=== PATIENT | female | born 1955 | race Caucasian/White ===

== ENCOUNTER → 2017-01-06 | Outpatient (CLI) | payer BC | LOC: FIMAGING 12:55 | PROVIDERS: ATTEND Obstetrics & Gynecology | DX: Z12.31 Encounter for screening mammogram for malignant neoplasm of breast (principal) | CPT/HCPCS: G0202 ==

== ENCOUNTER 2017-09-03 08:05 | Emergency (ER) | payer BC ==
--- NOTE | 2017-09-03 08:28 | EDPHY ---
H & P Time Seen by Provider: 09/03/17 08:15 HPI/ROS: CHIEF COMPLAINT: Constipation, liquid stool HISTORY OF PRESENT ILLNESS: Patient presents with 10 days of constipation and no normal bowel movement. She says she has only had some liquid stool for the last 10 days. But decreased bowel output. No vomiting or melena or abdominal pain but a little bit of nausea yesterday. Symptoms mild to moderate. Not better or worse with anything. Tried Dulcolax and increased fiber without relief. No recent travel. REVIEW OF SYSTEMS: Eye: no change in vision ENT: no sore throat Cardiac: no chest pain or syncope Pulmonary: no cough or SOB Abdomen: HPI Musculoskeletal: Chronic back pain on tramadol no change Skin: no rash Neuro: no headache Constitutional: no fever : no urinary symptoms A comprehensive 10 point review of systems is otherwise negative aside from elements mentioned in the history of present illness. PAST MEDICAL HISTORY: Includes hypertension, cystocele, laparoscopic surgery for IUD problem when she was 24 years old Social history: Recently was helping her daughter with a , states that she did not"focus on herself"for a week and a half until this past weekend. General Appearance: Alert and conversant, cooperative. Eyes: No scleral icterus. ENT, Mouth: Normal mucous membranes. Respiratory: Normal respiratory effort, breath sounds equal, lungs are clear to auscultation. Cardiovascular: Regular rate and rhythm. Gastrointestinal: Abdomen is soft and non tender. Rectal exam shows no stool in the vault. Bowel sounds present. No rebound or guarding. Neurological: Alert, face symmetric, normal motor and sensory in extremities. Skin: Warm and dry, no rashes. Musculoskeletal: No peripheral edema. Psychiatric: Not agitated. Emergency Department course/MDM: Clinically does not have constipation with no stool in the rectal vault. CT scan discussed and consented with the patient. 940: Results discussed with the patient, symptomatic care, reassured, stable for discharge. Smoking Status: Never smoked Constitutional: Initial Vital Signs Temperature (C) 37 C 09/03/17 08:07 Heart Rate 76 09/03/17 08:07 Respiratory Rate 18 09/03/17 08:07 Blood Pressure 163/98 H 09/03/17 08:07 O2 Sat (%) 97 09/03/17 08:07 O2 Delivery Mode Room Air Allergies/Adverse Reactions: Sulfa (Sulfonamide Antibiotics) Allergy (Severe, Verified 09/03/17 08:13) Red Man Syndrome Home Medications: Medication Instructions Recorded Acyclovir [Zovirax 200 mg (*)] 200 mg PO 09/03/17 Estradiol [Estrace Vaginal (*)] 42.5 gm VG 09/03/17 Lisinopril [Zestril 20 mg (*)] 20 mg PO 09/03/17 Metoprolol Tartrate [Lopressor 50 50 mg PO 09/03/17 mg (*)] traMADol [Ultram 50 mg (*)] 50 mg PO 09/03/17 Medical Decision Making - Diagnostics Imaging Results: Imaging Impressions Abdomen CT 09/03/17 08:54 Impression: 1. No source for abdominal pain identified. 2. Diverticulosis without evidence of bowel obstruction, acute inflammation or abscess. 3. Degenerative spinal stenosis L4-L5. Results called and discussed with KORI ALEXANDER, at 09/03/2017 9:35 General information for patients regarding this examination can be found at [email or web address]. If you have questions or comments about this report, please contact me at [phone] (hospital) or [phone] (cell). Imaging: Discussed imaging studies w/ call center director Radiologist Differential Diagnosis: Differential considered including but not limited to constipation, partial bowel obstruction, infectious diarrhea, colitis. - Data Points Laboratory Results: Laboratory Results 09/03/17 08:30 09/03/17 08:30 09/03/17 09/03/17 09/03/17 08:37 08:30 08:30 WBC 7.60 10^3/uL 10^3/uL (3.80-9.50) RBC 4.86 10^6/uL 10^6/uL (4.18-5.33) Hgb 16.6 g/dL H g/dL (12.6-16.3) POC Hgb 18.0 gm/dL H gm/dL (12.6-16.3) Hct 48.5 % H % (38.0-47.0) POC Hct 53 % H % (38-47) MCV 99.8 fL fL (81.5-99.8) MCH 34.2 pg H pg (27.9-34.1) MCHC 34.2 g/dL g/dL (32.4-36.7) RDW 12.7 % % (11.5-15.2) Plt Count 210 10^3/uL 10^3/uL (150-400) MPV 12.1 fL H fL (8.7-11.7) Neut % (Auto) 59.7 % % (39.3-74.2) Lymph % (Auto) 27.8 % % (15.0-45.0) [place] % (Auto) 10.3 % % (4.5-13.0) Eos % (Auto) 1.4 % % (0.6-7.6) Baso % (Auto) 0.5 % % (0.3-1.7) Nucleat RBC Rel Count 0.0 % % (0.0-0.2) Absolute Neuts (auto) 4.54 10^3/uL 10^3/uL (1.70-6.50) Absolute Lymphs (auto) 2.11 10^3/uL 10^3/uL (1.00-3.00) Absolute Monos (auto) 0.78 10^3/uL 10^3/uL (0.30-0.80) Absolute Eos (auto) 0.11 10^3/uL 10^3/uL (0.03-0.40) Absolute Basos (auto) 0.04 10^3/uL 10^3/uL (0.02-0.10) Absolute Nucleated RBC 0.00 10^3/uL 10^3/uL (0-0.01) Immature Gran % 0.3 % % (0.0-1.1) Immature Gran # 0.02 10^3/uL 10^3/uL (0.00-0.10) POC Sodium 139 mEq/L mEq/L (135-145) Sodium 137 mEq/L mEq/L (135-145) POC Potassium 4.4 mEq/L mEq/L (3.3-5.0) Potassium 4.7 mEq/L mEq/L (3.3-5.0) POC Chloride 100 mEq/L mEq/L (97-110) Chloride 103 mEq/L mEq/L (97-110) Carbon Dioxide 21 mEq/l L mEq/l (22-31) Anion Gap 13 mEq/L mEq/L (8-16) POC BUN 8 mg/dL mg/dL (7-23) BUN 8 mg/dL mg/dL (7-23) Creatinine 0.7 mg/dL mg/dL (0.6-1.0) POC Creatinine 0.9 mg/dL mg/dL (0.6-1.0) Estimated GFR > 60 Glucose 111 mg/dL H mg/dL (70-100) POC Glucose 121 mg/dL H mg/dL (70-100) Calcium 9.4 mg/dL mg/dL (8.5-10.4) Point of Care Test Results: Chemistry 09/03/17 08:37 POC Sodium 139 mEq/L mEq/L (135-145) POC Potassium 4.4 mEq/L mEq/L (3.3-5.0) POC Chloride 100 mEq/L mEq/L (97-110) POC BUN 8 mg/dL mg/dL (7-23) POC Creatinine 0.9 mg/dL mg/dL (0.6-1.0) POC Glucose 121 mg/dL H mg/dL (70-100) ISTAT H&H 09/03/17 08:37 POC Hgb 18.0 gm/dL H gm/dL (12.6-16.3) POC Hct 53 % H % (38-47) Departure - Departure Disposition: Home, Routine, Self-Care Clinical Impression: Acute diarrhea Condition: Good Instructions: Acute Diarrhea (ED) Referrals: Rubi Galvan MD [Medical Doctor] - As per Instructions
[2017-09-03 08:42] LABS: PLATELET COUNT 210 10^3/uL (150-400)
[2017-09-03] MEDS ORDERED: IOPAMIDOL (ISOVUE-300) 100 ML BTL ONE (09:30)
[2017-09-03 09:47] VITALS: BP 124/80
== END 2017-09-03 09:48 | disposition home or self-care (01) ==
DX: R19.7 Diarrhea, unspecified (principal); I10 Essential (primary) hypertension
CPT/HCPCS: 82435-PO; 82565-PO; 82947-PO; 84132-PO; 84295-PO; 84520-PO; 85014-PO; Q9967